=== PATIENT | female | born 1930 | race Caucasian/White ===

== ENCOUNTER 2018-01-07 03:54 | Inpatient (IN) ==
[2018-01-07 05:14] LABS: Basophils % 0.1 % (0.0-0.8); Eosinophils % 0.1 % (0.00-10.9); Hematocrit 29.5 VOL% (35.7-47.0); Hemoglobin 9.8 GM/DL (12.0-16.0); Immature Granulocytes % 0.4 %; Immature Granulocytes Absolute 0.04 #; Lymphocytes # 0.9 10*3/uL (1.4-4.0); Lymphocytes % 9.6 % (21.3-54.2); Mean Corpuscular HGB Conc 33.2 GM/DL (32-36); Mean Corpuscular Hemoglobin 30 PG (27-34); Mean Corpuscular Volume 89.9 FL (87-102); Mean Platelet Volume 11.4 FL (9.6-12.0); Monocytes # 0.5 10*3/uL (0.11-0.8); Monocytes % 5.4 % (1.7-12.7); Neutrophils % 84.4 % (38.7-73.9); Platelet Count 153 T/CUMM (130-400); Red Blood Count 3.28 MC/CUMM (3.8-5.5); Red Cell Distribution Width 13.7 % (9.3-17.3); White Blood Count 9.5 T/CUMM (4-12)
[2018-01-07 05:21] LABS: PT Patient Result 10.9 SECS
[2018-01-07 05:22] LABS: Albumin 3.2 G/DL (3.4-5.0); Calcium 8.9 MG/DL (8.5-10.1); Lactic Acid 1.4 MMOL/L (0.4-2.0); Potassium 3.7 MMOL/L (3.5-5.1)
[2018-01-07 05:56] LABS: Apearance,Urine CLOUDY (Clear); Bacteria,Urine Many /HPF (Few); Bilirubin,Urine Negative (Negative); Blood, Urine Moderate mg/dL (Negative); Glucose,Urine (UA) Negative (Negative); Ketones,Urine Negative (Negative); Nitrite,Urine Negative (Negative); Protein,Urine 100 MG/DL; RBC,Urine 47 /HPF (0-4); Urine Color Yellow (Yellow); Urine Urobilinogen < 2.0 EU/DL (0.2-1.0); WBC,Urine 1043 /HPF (0-6)
[2018-01-07] MEDS ORDERED: SODIUM CHLORIDE 0.9% 1,000 ML IV STA (06:11)
[2018-01-07] MEDS ORDERED: CEFEPIME 2,000 MG in SODIUM CHLORIDE 0.9% 100 ML IV STA (06:13)
[2018-01-07] MEDS ORDERED: VANCOMYCIN INJ 1,000 MG in SODIUM CHLORIDE 0.9% 250 ML IV STA (06:13)
[2018-01-07] MEDS ORDERED: CEFEPIME 1,000 MG VIAL ONE (06:29)
[2018-01-07] MEDS ORDERED: SODIUM CHLORIDE 0.9% 100 ML IV ONE (06:30)
[2018-01-07] MEDS ORDERED: CEFEPIME 2,000 MG VIAL ONE (06:31)
[2018-01-07] MEDS ORDERED: DOCUSATE SODIUM 100 MG CAPSULE PO PRN (08:07)
[2018-01-07] MEDS ORDERED: NOREPINEPHRINE 8 MG in SODIUM CHLORIDE 0.9% 242 ML IV PRN (08:07)
[2018-01-07] MEDS ORDERED: ONDANSETRON 4 MG/2 ML VIAL IV PRN (08:07)
[2018-01-07] MEDS ORDERED: MORPHINE 4 MG/1 ML VIAL IV PRN (08:07)
[2018-01-07] MEDS ORDERED: ALBUTEROL 2.5 MG/3 ML NEB RESP TX PRN (08:07)
[2018-01-07] MEDS ORDERED: LACTULOSE 20 GM/30 ML UDCUP PO PRN (08:07)
[2018-01-07] MEDS ORDERED: SODIUM CHLORIDE 0.9% 1,000 ML IV SCH (08:30)
[2018-01-07] MEDS: PANTOPRAZOLE 40 MG TABLET PO SCH (10:03)
[2018-01-07] MEDS ORDERED: FUROSEMIDE 40 MG/4 ML VIAL IV ONE (11:39)
[2018-01-07] MEDS ORDERED: FUROSEMIDE 20 MG/2 ML VIAL ONE (11:41)
[2018-01-07] MEDS: SOTALOL 80 MG TABLET PO SCH ×2 (12:20→20:20)
[2018-01-07] MEDS: LOSARTAN 50 MG TABLET PO SCH ×2 (12:20→20:20)
[2018-01-07] MEDS: CARVEDILOL 25 MG TABLET PO SCH ×2 (12:20→20:20)
[2018-01-07 12:32] LABS: Apearance,Urine Slightly Hazy (Clear); Bilirubin,Urine Negative (Negative); Blood, Urine Moderate mg/dL (Negative); Glucose,Urine (UA) Negative (Negative); Ketones,Urine Negative (Negative); Nitrite,Urine Negative (Negative); Protein,Urine 30 MG/DL; RBC,Urine 20 /HPF (0-4); Urine Color Yellow (Yellow); Urine Specific Gravity 1.009 (1.001-1.035); Urine Urobilinogen < 2.0 EU/DL (0.2-1.0); WBC,Urine 102 /HPF (0-6)
[2018-01-07] MEDS: CEFEPIME 2,000 MG in SYRINGE 1 EACH IV SCH (17:15)
[2018-01-07] MEDS ORDERED: NOREPINEPHRINE 4 MG/4 ML VIAL IV ONE ×2 (17:48→18:08)
[2018-01-07] MEDS: SIMVASTATIN 40 MG TABLET PO SCH (20:20)
[2018-01-07] MEDS: APIXABAN 2.5 MG TABLET PO SCH (20:20)
[2018-01-08 05:09] LABS: Basophils % 0.2 % (0.0-0.8); Eosinophils % 0.4 % (0.00-10.9); Hematocrit 27.1 VOL% (35.7-47.0); Hemoglobin 8.9 GM/DL (12.0-16.0); Immature Granulocytes % 0.3 %; Immature Granulocytes Absolute 0.03 #; Lymphocytes # 1.5 10*3/uL (1.4-4.0); Lymphocytes % 16.4 % (21.3-54.2); Mean Corpuscular HGB Conc 32.8 GM/DL (32-36); Mean Corpuscular Hemoglobin 29 PG (27-34); Mean Corpuscular Volume 89.1 FL (87-102); Mean Platelet Volume 11.3 FL (9.6-12.0); Monocytes # 0.6 10*3/uL (0.11-0.8); Monocytes % 6.9 % (1.7-12.7); Neutrophils % 75.8 % (38.7-73.9); Platelet Count 135 T/CUMM (130-400); Red Blood Count 3.04 MC/CUMM (3.8-5.5); Red Cell Distribution Width 14.1 % (9.3-17.3); White Blood Count 9.2 T/CUMM (4-12)
[2018-01-08 05:36] LABS: Calcium 8.5 MG/DL (8.5-10.1); Osmolality,Calculated 283.4 MOS/KG (273-304); Potassium 3.4 MMOL/L (3.5-5.1); Risk Ratio 2.08; VLDL CHOLESTEROL 17.4 MG/DL
[2018-01-08] MEDS: CEFEPIME 2,000 MG in SYRINGE 1 EACH IV SCH ×2 (06:07→19:21)
[2018-01-08] MEDS: LEVOTHYROXINE 50 MCG TABLET PO SCH (06:14)
[2018-01-08] MEDS: FUROSEMIDE 40 MG TABLET PO SCH (08:35)
[2018-01-08] MEDS: PANTOPRAZOLE 40 MG TABLET PO SCH (08:35)
[2018-01-08] MEDS: ASPIRIN EC 81 MG TABLET PO SCH (08:35)
[2018-01-08] MEDS: APIXABAN 2.5 MG TABLET PO SCH ×2 (08:36→20:35)
[2018-01-08] MEDS: LOSARTAN 50 MG TABLET PO SCH (08:37)
[2018-01-08] MEDS: CARVEDILOL 25 MG TABLET PO SCH (08:37)
[2018-01-08] MEDS: SOTALOL 80 MG TABLET PO SCH (08:37)
[2018-01-08] MEDS: SIMVASTATIN 40 MG TABLET PO SCH (20:35)
[2018-01-09 05:11] LABS: Basophils % 0.2 % (0.0-0.8); Eosinophils # 0.1 10*3/uL (0.0-0.87); Eosinophils % 1.3 % (0.00-10.9); Hematocrit 26.1 VOL% (35.7-47.0); Hemoglobin 8.4 GM/DL (12.0-16.0); Immature Granulocytes % 0.3 %; Immature Granulocytes Absolute 0.02 #; Lymphocytes # 1.2 10*3/uL (1.4-4.0); Lymphocytes % 20.3 % (21.3-54.2); Mean Corpuscular HGB Conc 32.2 GM/DL (32-36); Mean Corpuscular Hemoglobin 29 PG (27-34); Mean Platelet Volume 11.5 FL (9.6-12.0); Monocytes # 0.6 10*3/uL (0.11-0.8); Monocytes % 10.5 % (1.7-12.7); Neutrophils # 4.1 10*3/uL (1.4-7.4); Neutrophils % 67.4 % (38.7-73.9); Platelet Count 137 T/CUMM (130-400); Red Cell Distribution Width 13.7 % (9.3-17.3)
[2018-01-09 05:23] LABS: Calcium 8.7 MG/DL (8.5-10.1); Osmolality,Calculated 286.4 MOS/KG (273-304); Potassium 3.7 MMOL/L (3.5-5.1)
[2018-01-09] MEDS: LEVOTHYROXINE 50 MCG TABLET PO SCH (06:24)
[2018-01-09] MEDS: CEFEPIME 2,000 MG in SYRINGE 1 EACH IV SCH ×2 (06:24→17:52)
[2018-01-09] MEDS: APIXABAN 2.5 MG TABLET PO SCH ×2 (09:21→20:53)
[2018-01-09] MEDS: ASPIRIN EC 81 MG TABLET PO SCH (09:21)
[2018-01-09] MEDS: FUROSEMIDE 40 MG TABLET PO SCH ×3 (09:21→17:51)
[2018-01-09] MEDS: PANTOPRAZOLE 40 MG TABLET PO SCH (09:22)
[2018-01-09] MEDS ORDERED: FUROSEMIDE 40 MG/4 ML VIAL IV ONE (09:39)
[2018-01-09] MEDS: amLODIPine 5 MG TABLET PO SCH (12:27)
[2018-01-09] MEDS ORDERED: ATORVASTATIN 40 MG TABLET PO SCH (21:00)
[2018-01-10] MEDS: CEFEPIME 2,000 MG in SYRINGE 1 EACH IV SCH (05:08)
[2018-01-10 06:48] LABS: Basophils % 0.2 % (0.0-0.8); Eosinophils # 0.1 10*3/uL (0.0-0.87); Eosinophils % 2.5 % (0.00-10.9); Hematocrit 26.5 VOL% (35.7-47.0); Hemoglobin 8.5 GM/DL (12.0-16.0); Immature Granulocytes % 0.2 %; Immature Granulocytes Absolute 0.01 #; Lymphocytes % 23.3 % (21.3-54.2); Mean Corpuscular HGB Conc 32.1 GM/DL (32-36); Mean Corpuscular Hemoglobin 29 PG (27-34); Mean Corpuscular Volume 91.7 FL (87-102); Mean Platelet Volume 10.9 FL (9.6-12.0); Monocytes # 0.4 10*3/uL (0.11-0.8); Monocytes % 9.2 % (1.7-12.7); Neutrophils # 2.8 10*3/uL (1.4-7.4); Neutrophils % 64.6 % (38.7-73.9); Platelet Count 142 T/CUMM (130-400); Red Blood Count 2.89 MC/CUMM (3.8-5.5); Red Cell Distribution Width 13.5 % (9.3-17.3); White Blood Count 4.3 T/CUMM (4-12)
[2018-01-10 07:20] LABS: Calcium 8.4 MG/DL (8.5-10.1); Osmolality,Calculated 281.5 MOS/KG (273-304); Potassium 3.6 MMOL/L (3.5-5.1)
[2018-01-10] MEDS ORDERED: CIPROFLOXACIN INJ 400 MG in PREMIX 1 EACH IV SCH (07:30)
[2018-01-10] MEDS: amLODIPine 5 MG TABLET PO SCH (08:47)
[2018-01-10] MEDS: APIXABAN 2.5 MG TABLET PO SCH (08:47)
[2018-01-10] MEDS: ASPIRIN EC 81 MG TABLET PO SCH (08:47)
[2018-01-10] MEDS: PANTOPRAZOLE 40 MG TABLET PO SCH (08:47)
[2018-01-10] MEDS: LEVOTHYROXINE 50 MCG TABLET PO SCH (08:47)
[2018-01-10] MEDS: FUROSEMIDE 40 MG TABLET PO SCH (10:00)
[2018-01-10 11:24] VITALS: BP 146/67
[2018-01-10] MEDS ORDERED: INFLUENZA VIRUS VACCINE 0.5 ML SYRINGE IM ONE (11:30)
[2018-01-10] MEDS ORDERED: CIPROFLOXACIN 500 MG TABLET PO SCH (21:00)
== END 2018-01-10 12:01 | disposition home health service (06) | DRG 690 ==
LOC: EDUNIT# → N.ED 03:54 → N.EDINP 07:53 → SUATTDRO 07:53 → N.CC 08:35 → N.2E 01-08 18:02
PROVIDERS: ADMIT Internal Medicine; ATTEND Internal Medicine